=== PATIENT | female | born 1985 | race Hispanic/Latino ===

== ENCOUNTER 2019-02-03 16:00 | Emergency (ER) | payer SELFPAY ==
[2019-02-03 17:02] LABS: Urine Blood NEGATIVE (NEG); Urine Glucose NEGATIVE (NEG); Urine Protein NEGATIVE (NEG); Urine Specific Gravity <1.005 (1.005-1.030); Urine pH 6.5 (5.0-7.0)
[2019-02-03 17:10] LABS: Absolute Lymphocytes (CBC) 1.7 K/uL (0.7-4.9); Basophils % 0.4 % (0-1.3); Eosinophils % 0.6 % (0-4.4); Hematocrit 36.7 % (36.0-45.0); Lymphocytes % 33.4 % (15.3-44.8); MPV 8.1 fL (7.6-11.3); RBC Red Blood Cell Count 3.96 M/uL (3.86-4.86)
[2019-02-03 17:25] LABS: BUN Blood Urea Nitrogen 16 mg/dL (7-18); Bicarbonate 27 mmol/L (21-32); Glucose Level 85 mg/dL (74-106); Potassium 3.7 mmol/L (3.5-5.1); Sodium Level 139 mmol/L (136-145)
--- NOTE | 2019-02-03 18:19 | EDPHYS ---
Physician Documentation [facility] Name: Leilani Gastelum Age: 33 yrs Sex: Female : 1985 Arrival Date: 02/03/2019 Time: 16:04 Bed 14 Private MD: ED Physician Harshal Taylor HPI: 02/03 17:34 This 33 yrs old Female presents to ER via Ambulatory with complaints of Pelvic gs Pain. 17:34 The patient complains of pain in the left lower quadrant. The pain radiates to the left gs low back. Onset: The symptoms/episode began/occurred gradually, yesterday. Modifying factors: The symptoms are alleviated by nothing. the symptoms are aggravated by nothing. Associated signs and symptoms: Pertinent negatives: fever, headache, hematuria, nausea, pain radiating to the lower extremities, vomiting. Severity of pain: At its worst the pain was moderate in the emergency department the pain is unchanged. The patient has not experienced similar symptoms in the past. 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 - Social history:: Smoking status: Patient/guardian denies using tobacco. - Ebola Screening: : No symptoms or risks identified at this time. ROS: 17:34 All other systems are negative. gs Exam: 17:34 Head/Face: Normocephalic, atraumatic. Eyes: Pupils equal round and reactive to light, gs extra-ocular motions intact. Lids and lashes normal. Conjunctiva and sclera are non-icteric and not injected. Cornea within normal limits. Periorbital areas with no swelling, redness, or edema. ENT: Nares patent. No nasal discharge, no septal abnormalities noted. Tympanic membranes are normal and external auditory canals are clear. Oropharynx with no redness, swelling, or masses, exudates, or evidence of obstruction, uvula midline. Mucous membranes moist. Neck: Trachea midline, no thyromegaly or masses palpated, and no cervical lymphadenopathy. Supple, full range of motion without nuchal rigidity, or vertebral point tenderness. No Meningismus. Chest/axilla: Normal chest wall appearance and motion. Nontender with no deformity. No lesions are appreciated. Cardiovascular: Regular rate and rhythm with a normal S1 and S2. No gallops, murmurs, or rubs. Normal PMI, no JVD. No pulse deficits. Respiratory: Lungs have equal breath sounds bilaterally, clear to auscultation and percussion. No rales, rhonchi or wheezes noted. No increased work of breathing, no retractions or nasal flaring. Abdomen/GI: Soft, non-tender, with normal bowel sounds. No distension or tympany. No guarding or rebound. No evidence of tenderness throughout. Back: No spinal tenderness. No costovertebral tenderness. Full range of motion. Skin: Warm, dry with normal turgor. Normal color with no rashes, no lesions, and no evidence of cellulitis. MS/ Extremity: Pulses equal, no cyanosis. Neurovascular intact. Full, normal range of motion. Neuro: Awake and alert, GCS 15, oriented to person, place, time, and situation. Cranial nerves II-XII grossly intact. Motor strength 5/5 in all extremities. Sensory grossly intact. Cerebellar exam normal. Normal gait. 17:34 Constitutional: The patient appears alert, awake. Vital Signs: 16:08 BP 105 / 67; Pulse 68; Resp 16; Temp 98.3(TE); Pulse Ox 100% on R/A; Weight 61.23 kg; Height 4 ft. 11 in. (149.86 cm); Pain 6/10; 18:48 BP 110 / 64; Pulse 71; Resp 16; Pulse Ox 98% on R/A; la1 16:08 Body Mass Index 27.26 (61.23 kg, 149.86 cm) MDM: 16:43 Patient medically screened. 17:34 Differential diagnosis: nephrolithiasis, pyelonephritis, UTI. Data reviewed: vital gs signs, nurses notes. 02/03 16:43 Order name: Urine Dipstick--Ancillary (enter results); Complete Time: 17:33 02/03 16:44 Order name: CBC with Diff; Complete Time: 17:33 02/03 16:44 Order name: Basic Metabolic Panel; Complete Time: 17:33 02/03 16:44 Order name: Test, Serum; Complete Time: 17:41 02/03 16:44 Order name: CT Stone Protocol; Complete Time: 18:24 02/03 16:11 Order name: Urine Dipstick-Ancillary (obtain specimen); Complete Time: 16:38 02/03 16:11 Order name: Urine Test (obtain specimen); Complete Time: 16:38 Administered Medications: 17:41 Drug: TORadol - Ketorolac 15 mg Route: IVP; Site: right antecubital; la1 18:47 Follow up: Response: No adverse reaction; Pain is decreased la1 18:30 Drug: [place] 5 mg-325 mg 1 tabs Route: PO; la1 18:47 Follow up: Response: No adverse reaction; Pain is decreased la1 Disposition: 02/03/19 18:18 Discharged to Home. Impression: Calculus of kidney and ureter, Hydronephrosis with renal and ureteral calculous obstruction. - Condition is Stable. - Discharge Instructions: Kidney Stones. - Prescriptions for Tylenol- Codeine #3 300-30 mg Oral Tablet - take 1 tablet by ORAL route every 6 hours As needed; 10 tablet. - Work release form, Medication Reconciliation Form, Thank You Letter, Antibiotic Education, Prescription Opioid Use form. - Follow up: Jordin Mcclendon MD; When: 1 - 2 days; Reason: Re-evaluation by your physician. Signatures: Dispatcher [employer] EDMS Efe Landry RN RN la1 Atif Mulligan RN RN Harshal Taylor MD MD Corrections: (The following items were deleted from the chart) 18:24 18:18 02/03/2019 18:18 Discharged to Home. Impression: Calculus of kidney and ureter. Condition is Stable. Forms are Medication Reconciliation Form, Thank You Letter, Antibiotic Education, Prescription Opioid Use. Follow up: Jordin Mcclendon; When: 1 - 2 days; Reason: Re-evaluation by your physician. 18:48 18:24 02/03/2019 18:18 Discharged to Home. Impression: Calculus of kidney and ureter; la1 Hydronephrosis with renal and ureteral calculous obstruction. Condition is Stable. Discharge Instructions: Kidney Stones. Prescriptions for Tylenol-Codeine #3 300-30 mg Oral Tablet - take 1 tablet by ORAL route every 6 hours As needed; 10 tablet. and Forms are Medication Reconciliation Form, Thank You Letter, Antibiotic Education, Prescription Opioid Use. Follow up: Jordin Mcclendon; When: 1 - 2 days; Reason: Re-evaluation by your physician. gs
--- NOTE | 2019-02-03 18:19 | ER ---
Nurse's Notes [facility] Name: Leilani Gastelum Age: 33 yrs Sex: Female : 1985 Arrival Date: 02/03/2019 Time: 16:04 Bed 14 Private MD: Diagnosis: Calculus of kidney and ureter;Hydronephrosis with renal and ureteral calculous obstruction Presentation: 02/03 16:06 Presenting complaint: Patient states: i started having L lower back pain last night, hj and this morning the pain is till day and its getting worse; pain is 6/10; denies burning urination; pain radiates to the L groin area; denies N/V; denies fever and chills;. Transition of care: patient was not received from another setting of care. Onset of symptoms was February 03, 2019. Risk Assessment: Do you want to hurt yourself or someone else? Patient reports no desire to harm self or others. Initial Sepsis Screen: Does the patient meet any 2 criteria? No. Patient's initial sepsis screen is negative. Does the patient have a suspected source of infection? No. Patient's initial sepsis screen is negative. Care prior to arrival: None. 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 - Social history:: Smoking status: Patient/guardian denies using tobacco. - Ebola Screening: : No symptoms or risks identified at this time. Screenin:36 Abuse screen: Denies threats or abuse. Nutritional screening: No deficits noted. la1 Tuberculosis screening: No symptoms or risk factors identified. Fall Risk None identified. Assessment: 16:37 General: Appears in no apparent distress. Behavior is calm, cooperative. Pain: la1 Complains of pain in left lower quadrant. Neuro: Level of Consciousness is awake, alert, obeys commands, Oriented to person, place, time, situation. Cardiovascular: Capillary refill < 3 seconds Patient's skin is warm and dry. Respiratory: Airway is patent Respiratory effort is even, unlabored, Respiratory pattern is regular, symmetrical. GI: Abdomen is round non-distended, Bowel sounds present X 4 quads. Abd is soft X 4 quads Abdomen is tender to palpation in left lower quadrant. : No signs and/or symptoms were reported regarding the genitourinary system. Vital Signs: 16:08 BP 105 / 67; Pulse 68; Resp 16; Temp 98.3(TE); Pulse Ox 100% on R/A; Weight 61.23 kg; hj Height 4 ft. 11 in. (149.86 cm); Pain 6/10; 18:48 BP 110 / 64; Pulse 71; Resp 16; Pulse Ox 98% on R/A; la1 16:08 Body Mass Index 27.26 (61.23 kg, 149.86 cm) ED Course: 16:04 Patient arrived in ED. 16:08 Triage completed. 16:11 Harshal Taylor MD is Attending Physician. gs 16:36 Efe Landry, RN is Primary Nurse. la1 16:36 Arm band placed on left wrist. la1 16:37 Call light in reach. Side rails up X 1. Pulse ox on. NIBP on. la1 16:50 Urine collected: clean catch specimen, clear. dh3 16:56 Radiology exam delayed due to test not completed at this time. vm2 16:58 Initial lab(s) drawn, by me, sent to lab. Inserted saline lock: 22 gauge in right dh3 antecubital area, using aseptic technique. Blood collected. 17:22 Radiology exam delayed due to test not completed at this time. al 18:00 CT Stone Protocol In Process Unspecified. EDMS 18:18 Jordin Mcclendon MD is Referral Physician. gs 18:48 No provider procedures requiring assistance completed. IV discontinued, intact, la1 bleeding controlled, No redness/swelling at site. Pressure dressing applied. Administered Medications: 17:41 Drug: TORadol - Ketorolac 15 mg Route: IVP; Site: right antecubital; la1 18:47 Follow up: Response: No adverse reaction; Pain is decreased la1 18:30 Drug: [place] 5 mg-325 mg 1 tabs Route: PO; la1 18:47 Follow up: Response: No adverse reaction; Pain is decreased la1 Outcome: 18:18 Discharge ordered by . gs 18:48 Discharged to home ambulatory. la1 18:48 Condition: stable 18:48 Discharge instructions given to patient, Instructed on discharge instructions, follow up and referral plans. medication usage, Demonstrated understanding of instructions, follow-up care, medications, Prescriptions given X 1. 18:48 Patient left the ED. la1 Signatures: Dispatcher [employer] EDMS Efe Landry RN RN la1 Atif Mulligan RN RN hj Jordan, Nathan nj McGuire, [facility] Brenda Jorgensen 3 Harshal Taylor MD MD gs Corrections: (The following items were deleted from the chart) 16:10 16:08 Pulse 68bpm; Resp 16bpm; Pulse Ox 100% RA; Temp 98.3F Temporal; 61.23 kg; Height hj 4 ft. 11 in.; BMI: 27.2; Pain 6/10; hj
--- NOTE | 2019-02-03 18:20 | RAD REPORT ---
EXAM DESCRIPTION: CT - Stone Protocol - 02/03/2019 6:00 pm CLINICAL HISTORY: Flank pain. FLANK PAIN COMPARISON: <Comparisons> TECHNIQUE: Axial images were obtained without oral or IV contrast. Lack of contrast limits solid org an and vascular assessment. The [id number] spans the entirety of the system partially obscuring uppermost abdomen and lung bases. Coronal reformatted images were obtained and reviewed. All CT scans are performed using dose optimization technique as appropriate and may include automated exposure control or mA/KV adjustment according to patient size. FINDINGS: The lower lung dasilva are clear. Imaged portions of the liver and spleen show no suspicious findings on non-contrast imaging. The panc reas and adrenal glands are normal. No pathologic lymphadenopathy in the abdomen or pelvis. Bilateral nephrolithiasis is present in the kidneys, all of which are under 4 mm in size. A 5 mm ston e (980 HU) is present at the left UVJ resulting in mild left hydronephrosis. No bowel obstruction, free air, free fluid or abscess. Normal appendix noted. No significant bony abnormality. IMPRESSION: 5 mm stone left UVJ resulting in mild left hydronephrosis and hydroureter.
[2019-02-03] MEDS ORDERED: HYDROCODONE/APAP 5/325 MG TAB ONE (18:43)
[2019-02-03 19:27] VITALS: TEMP 98.3
[2019-02-03 19:29] VITALS: BP 110/64; O2SAT 98
== END 2019-02-03 18:48 | disposition home or self-care (01) ==
LOC: ER 16:00
DX: N13.2 Hydronephrosis with renal and ureteral calculous obstruction (principal); E78.5 Hyperlipidemia, unspecified
CPT/HCPCS: 36415; 74176; 76377; 80048; 81003; 84703; 85025; 96374; 99284